=== PATIENT | female | born 1930 | race Caucasian/White ===

== ENCOUNTER 2016-07-12 09:57 | Inpatient (IN) | payer MEDICARE, OTHER ==
--- NOTE | ~2016-07-12 | HP ---
History And Physical [place] [id number] [facility] [place]. [address] NAME: MCKINLEY MEI : 28 STATUS : ADM IN [facility]#: [id number] AGE: 86 ADM/REG DATE : 07/12/16 MR#: [id number] REPORT SERV DATE: 07/12/16 DICTATED BY: KAYLA SHANKAR DATE: 07/12/16 REPORT STATUS : Draft TRANSCRIBED BY: MODKarin DATE: 07/12/16 DATE OF ADMISSION: 07/12/2016 CHIEF COMPLAINT: Status post fall this morning at the [facility], [facility] called for increased weakness. HISTORY OF PRESENT ILLNESS: This is an 86-year-old female patient, who resides at the [facility], which called the ambulance for increased weakness and decreased mentation and failure to thrive. When ambulance arrived at the [facility], her heart rate was noted to be slightly elevated about 160s with atrial fibrillation briefly. When she arrived at the emergency room, her heart rate went down to the 57 in sinus rhythm and sinus bradycardia. While Dr. Acosta, emergency physician, who was talking to the patient, she converted to sinus rhythm without any intervention. She does not have any history of atrial fibrillation or cardiac history. Therefore the Hospitalist Service was called for inpatient care. She is at her baseline at this point with the sitters being around here and a sitter has also confirmed that her mental status is about the same as her normal. She knows where she is. She knows the time and place. She said she normally uses a wheelchair and that she does not need any extra help wheelchair, then she is able to move herself from the wheelchair to the commode without any problem but she thinks she tripped on something this morning when she fell between the chair and wheelchair. She denies any loss of consciousness. Denies any palpitation or dizziness or syncopal episode. According to the information available from the son on the phone to Dr. Acosta, the patient's functional status and memory has been gradually declined in the last year. She is still in assisted living without any dementia unit. She enjoys her day out shopping and eating out from assisted living. She said that she goes away every week in different restaurants and she enjoys very much and also group work with . She has been wheelchair bound for a long time. She has been in assisted living for at least several years. Her medications have not been changed. Denies any shortness of breath or any coughing. No chest pain and denies any constipation. She said it depends on what she eats but normally goes every other day to every day. Denies any burning sensation. Also she denies any self catheterization although the information from the [facility] states she had atonic bladder and a history of UTI. In the emergency room, they checked the urinary retention with a straight cath and then the retention was 600 mL. She does not have any other symptoms and urinalysis on emergency specimen was not showing any evidence of infection. She said that she was taking her antibiotics or medication for the UTI last week. She normally does have some degree about lower extremities edema for years and this seems to History And Physical [address] [address] NAME: MCKINLEY MEI : 28 STATUS : ADM IN [facility]#: [id number] AGE: 86 ADM/REG DATE : 07/12/16 MR#: [id number] REPORT SERV DATE: 07/12/16 DICTATED BY: KAYLA SHANKAR DATE: 07/12/16 REPORT STATUS : Draft TRANSCRIBED BY: ADE DATE: 07/12/16 be may be a little bit worse recently. However she does not have any short of breath nor dyspnea. She is at her baseline mentation and functional status and she is remaining at sinus rhythm at this point. REVIEW OF SYSTEMS: No weight gains and no vision changes or hearing changes. No bleeding. Other systems reviewed in the 14 systems and all negative. PAST MEDICAL HISTORY: 1. Atonic bladder. 2. Frequent UTI. 3. Dementia. 4. Hypertension. 5. GERD. 6. Hypothyroidism. 7. Hyperlipidemia. 8. Ulcerative colitis. 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 10.History of anemia. SOCIAL HISTORY: She is lifelong nonsmoker and she lives in assisted living. She kept saying that her son is an anesthesiologist, Dr. Nilo Mei. ALLERGIES: CODEINE. PAST SURGICAL HISTORY: Cholecystectomy and appendectomy. The patient does have right-sided Port-A-Cath. She does not remember why she had a cath port inserted but she believes that it was done for intake that she needed later use. MEDICATIONS: 1. Artifical eyedrops. 2. Celexa 20 mg once a day. 3. Clonidine 0.1 mg twice a day. 4. Aricept 10 mg at night. 5. Ferrous sulfate 325 mg once at lunch. 6. Glucosamine 1 tablet three times a day. 7. Hydralazine 25 mg twice a day. 8. Levothyroxine 100 mcg once a day. 9. Cozaar 100 mg once a day. 10.Prilosec 20 mg once a day. 11. tablets three times a day as needed. 12.Zocor 20 mg once at bedtime. PHYSICAL EXAMINATION: VITAL SIGNS: Blood pressure 170/46, pulse was 57, temperature was 97.8, respiratory rate was 20, and saturation is 100% on room air. History And Physical [address] [address] NAME: MCKINLEY MEI : 28 STATUS : ADM IN [facility]#: [id number] AGE: 86 ADM/REG DATE : 07/12/16 MR#: [id number] REPORT SERV DATE: 07/12/16 DICTATED BY: KAYLA SHANKAR DATE: 07/12/16 REPORT STATUS : Draft TRANSCRIBED BY: ADE DATE: 07/12/16 GENERAL APPEARANCE: She is alert, awake, not in acute distress. She is oriented x3 at this point. She does have frequent forgetfulness noted. HEENT: Pupils are equal and round and reactive to light. EOMI intact. Conjunctivae not anemic. NECK: There is no jugular venous distention. No nodes palpable. LUNGS: Clear to auscultation bilaterally. Has a normal respiratory effort. CARDIOVASCULAR: I do not hear any murmurs, rubs, or gallops. Has a regular rhythm and rate. ABDOMEN: Bowel sounds present. Soft. No tenderness or rebound tenderness. No organomegaly appreciated. EXTREMITIES: The patient has extensive lower extremity swelling on both lower extremities. The patient's pulse is palpable. LABORATORY DATA: Showed sodium 138, potassium 4.8, BUN 32, and creatinine 1.22. WBC 12, hemoglobin 11.6, hematocrit 34.1, and platelets 149. UA showed wbc 1. BNP was 179.9. STUDIES: 1. Chest x-ray showed some changes of left ventricular enlargement compared via x-rays done in 2013, and chronic change. 2. Electrocardiogram showed sinus bradycardia with a right bundle branch block. ASSESSMENT AND PLAN: 1. Status post fall without significant evidence of syncopal episode. 2. Brief transient atrial fibrillation, now, she is back to sinus bradycardia. 3. Hypertension. 4. Dementia. 5. Both leg edema. 6. CKD suspect did not document on this hospital record. The patient will be hospitalized with continuous cardiac monitoring for rhythm change. We are going to obtain the echocardiogram. We are going to do the supportive care. Because of the bradycardia, we will try to decrease the clonidine and because of the chronic kidney disease, we are going to hold off ARB at this point. We will increase the hydralazine at this point. We are going to add the Norvasc but we will watch out her swelling with the use of Norvasc at this point. Also the patient will be evaluated by physical therapy and discharge plan with the cyanide case hardener in [facility]. EKL/MODL Kayla Shankar M.D. / [id number] History And Physical [address] [address] NAME: MCKINLEY MEI : 28 STATUS : ADM IN [facility]#: [id number] AGE: 86 ADM/REG DATE : 07/12/16 MR#: [id number] REPORT SERV DATE: 07/12/16 DICTATED BY: KAYLA SHANKAR DATE: 07/12/16 REPORT STATUS : Draft TRANSCRIBED BY: MODL DATE: 07/12/16 CC: MD Natanael Tang M.D.
--- NOTE | ~2016-07-12 | DS ---
Discharge Summary [facility] [address] [place]. [address] NAME: MCKINLEY MEI : 28 STATUS : DIS IN PAT#: [id number] AGE: 86 ADM/REG DATE : 07/12/16 MR#: [id number] REPORT SERV DATE: 07/19/16 DICTATED BY: RICKI KHANNA DATE: 07/18/16 REPORT STATUS : Draft TRANSCRIBED BY: MODL DATE: 07/18/16 ADMISSION DATE: 07/12/2016 DISCHARGE DATE: 07/18/2016 DISCHARGE DIAGNOSES: 1. Failure to thrive in adult. 2. Frequent falls. 3. Uncontrolled hypertension. 4. Sinus bradycardia. 5. Senile dementia. 6. Occult blood positive stool with history of gastric antral vascular ectasia. 7. A brief episode of atrial fibrillation with conversion to sinus rhythm. CONSULTANTS: None. PROCEDURES: None. HOSPITAL COURSE: This is an 86-year-old lady who was admitted to the hospital for failure to thrive and frequent falls. For details, please refer to excellent H and P by Dr. Kayla Shankar. In summary, the patient was admitted and was worked up for any potential exacerbating factors such as dehydration or infections. The patient was ruled out of infections and dehydrations. The patient since then have been simply given supportive care. It was noted that the patient will likely benefit from rehab more than anything. During the hospital stay, patient was noted for uncontrolled hypertension despite having been on 5 different antihypertensives. They are all maxed out to include hydrochlorothiazide, Norvasc, losartan, hydralazine. The patient could not tolerate a beta-nat given baseline bradycardia. It was noted that the patient was likely flexing against the blood pressure cough and with manual checks, her blood pressure was better controlled but it is still in the 160s systolic. I had a discussion with the patient's son, Bre Mei, who is our in- house anesthesiologist and he remembered that in the past with aggressive blood pressure management, the patient actually suffered from side effects including hyponatremia and thus it was felt that we did not need to be more aggressive with blood pressure control. The patient will need to be followed closely as an outpatient for monitoring of her blood pressures as well as electrolytes. The patient has a history of GAVE and the patient had multiple episodes of GI bleeds requiring blood transfusions in the past. Per family request, the patient's stool was checked for occult blood which was positive. However, after discussion with Dr. Mei, the patient's son, it was felt that the patient just be better monitored clinically at her age of 86. Along with that, as the patient had a brief episode of atrial fibrillation that spontaneously converted to sinus rhythm with a baseline sinus bradycardia it was felt that the patient probably did not need any anticoagulated therapy. The family has been quite reasonable and focus of her care was to be conservative and focussed more on rehab. The patient is from [facility] but referral was made to [facility]. The patient was accepted to the skilled Discharge [address] [address] NAME: MCKINLEY MEI : 28 STATUS : DIS IN PAT#: [id number] AGE: 86 ADM/REG DATE : 07/12/16 MR#: [id number] REPORT SERV DATE: 07/19/16 DICTATED BY: RICKI KHANNA DATE: 07/18/16 REPORT STATUS : Draft TRANSCRIBED BY: ADE DATE: 07/18/16 nursing and she is now being discharged home with close outpatient followup instructions. DISPOSITION: To [facility]. FOLLOWUP: Please follow up in the next one to two weeks with the PCP. Total of 40 minutes spent in coordinating this patient's discharge today. KAUSHIK/ADE Ricki Khanna MD / [id number] CC: MD Natanael Tang M.D.
[~2016-07-12 09:57] MED LIST: APRES25 PO; ARICEPT10 PO; ARTHRITIS PAIN RELIE PO; AZO STANDARD PO; BL FLAX SEED1000 MG PO; CAT1 PO; CELEXA10 PO; CENTRUM TAB1 TAB PO; COZAAR100 MG PO; GLUCCHONDR PO; IMOD PO; IRON325 MG PO; LEVAQUIN5T PO; MAALOX PO; OS500+D PO; PRILO PO; ROBAFEN DM1 ML PO; SYN1 PO; ZOCOR20 PO
[2016-07-12 10:52] LABS: BASOPHILS 0.2 %; BASOPHILS ABSOLUTE 0.02 10/3/uL (0.0-0.16); EOSINOPHILS 1.1 %; EOSINOPHILS ABSOLUTE 0.13 10/3/uL (0.0-0.53); HEMATOCRIT 34.1 % (36.0-48.0); HEMOGLOBIN 11.6 g/dL (12.0-16.0); IMMATURE GRANULOCYTES 0.3 %; IMMATURE GRANULOCYTES ABSOLUTE 0.03 10/3/uL (0.0-0.11); LYMPHOCYTES 6.3 %; LYMPHOCYTES ABSOLUTE 0.75 10/3/uL (0.67-4.30); MEAN CORPUSCULAR HEMOGLOB 28.9 pg (26.0-34.0); MEAN CORPUSCULAR VOLUME 84.8 fL (80-100); MEAN PLATELET VOLUME 9.2 fL (9.2-13.0); MONOCYTES 6.5 %; MONOCYTES ABSOLUTE 0.78 10/3/uL (0.21-1.20); NEUTROPHILS 85.6 %; NEUTROPHILS ABSOLUTE 10.29 10/3/uL (2.02-8.40); RBC DISTRIBUTION WIDTH 14.8 % (12.0-16.0); RED CELL COUNT 4.02 10/6/uL (4.0-5.6)
[2016-07-12 10:53] LABS: ER CBC TAT 0 Hrs 07 Mins; MANUAL DIFF NO %; PLATELET COUNT 149 10/3/uL (150-400)
[2016-07-12 11:01] LABS: INTERNATIONAL NORMAL RATI 1.1 UNITS (-); PARTIAL THROMBO TIME 31.6 SEC (22.5-37.2); PROTIME (NOT ORD) 14.2 SEC (12.0-14.5)
[2016-07-12 11:05] LABS: ASCORBIC ACID (UR NOT ORDER) NEG (NEG); BILIRUBIN, URINE NEGATIVE (NEG); ER URINALYSIS TAT 0 Hrs 11 Mins; KETONE, URINE NEGATIVE (NEG); LEUKOCYTE ESTERASE(NOT OR NEG (NEG); NITRITE (URINE) NEG (NEG); WBC (NOT ORDERED) (RFLEX) 1 (0-5)
[2016-07-12 11:08] LABS: ALBUMIN 3.4 G/DL (3.5-5.0); ALKALINE PHOSPHATASE 86 U/L (45-117); CALCIUM, SERUM 8.8 MG/DL (8.5-10.4); CHLORIDE, SERUM 107 MMOL/L (96-112); CREATININE 1.22 MG/DL (0.55-1.02); GFR AFRICAN AMERICAN 46 ML/MIN (>=60); GFR NON AFRICAN AMERICAN 40 ML/MIN (>=60); GLUCOSE, SERUM 109 MG/DL (60-99); SGPT(ALT) 18 U/L (5-65); SODIUM, SERUM 138 MMOL/L (135-148); TOTAL PROTEIN 7.7 G/DL (6.0-8.5); TROPONIN I <0.02 NG/ML (<0.05)
[2016-07-12 11:09] LABS: A/G RATIO 0.8 (0.7-1.9); BUN (BLOOD UREA NITROGEN) 32 MG/DL (6-23); CO2 (CARBON DIOXIDE) 20 MMOL/L (24-34); GLOBULIN 4.3 G/DL (2.5-4.1); POTASSIUM, SERUM 4.8 MMOL/L (3.5-5.3); SGOT(AST) 37 U/L (5-40)
[2016-07-12] MEDS ORDERED: ARICEPT10 PO (12:54)
[2016-07-12] MEDS ORDERED: CAT1 PO (12:54)
[2016-07-12] MEDS ORDERED: CELEXA20 PO (12:54)
[2016-07-12] MEDS ORDERED: FERROUS SULF325 M1 PO (12:55)
[2016-07-12] MEDS ORDERED: LEVOTHYROXIN100 MCG PO (12:55)
[2016-07-12] MEDS ORDERED: COZAAR100 MG PO (12:55)
[2016-07-12] MEDS ORDERED: GLUCCHONDR PO (12:55)
[2016-07-12] MEDS ORDERED: APRES25 PO (12:55)
[2016-07-12] MEDS ORDERED: ZOCOR20 PO (12:56)
[2016-07-12] MEDS ORDERED: PRILO PO (12:56)
[2016-07-12] MEDS ORDERED: REFRESH OPH (12:56)
[2016-07-12] MEDS ORDERED: ZEASORB AF 2% TOP (12:57)
[2016-07-12] MEDS ORDERED: AZO-STANDARD95 MG PO (12:57)
[2016-07-12] MEDS ORDERED: SYSTANE ULTR OPH (12:57)
[2016-07-13 06:22] LABS: BASOPHILS 0.1 %; BASOPHILS ABSOLUTE 0.01 10/3/uL (0.0-0.16); EOSINOPHILS 1.2 %; EOSINOPHILS ABSOLUTE 0.12 10/3/uL (0.0-0.53); HEMOGLOBIN 10.1 g/dL (12.0-16.0); IMMATURE GRANULOCYTES 0.2 %; IMMATURE GRANULOCYTES ABSOLUTE 0.02 10/3/uL (0.0-0.11); LYMPHOCYTES 6.3 %; LYMPHOCYTES ABSOLUTE 0.61 10/3/uL (0.67-4.30); MEAN CORPUS HGB CONC 35.1 g/dL (32.0-36.0); MEAN CORPUSCULAR HEMOGLOB 28.9 pg (26.0-34.0); MEAN CORPUSCULAR VOLUME 82.3 fL (80-100); MEAN PLATELET VOLUME 9.3 fL (9.2-13.0); MONOCYTES 7.9 %; MONOCYTES ABSOLUTE 0.76 10/3/uL (0.21-1.20); NEUTROPHILS 84.3 %; NEUTROPHILS ABSOLUTE 8.15 10/3/uL (2.02-8.40); PLATELET COUNT 115 10/3/uL (150-400); RBC DISTRIBUTION WIDTH 14.9 % (12.0-16.0); WHITE BLOOD CELLS 9.7 10/3/uL (4.5-10.5)
[2016-07-13 06:28] LABS: HEMATOCRIT 28.8 % (36.0-48.0); MANUAL DIFF NO %
[2016-07-13 06:32] LABS: CHLORIDE, SERUM 108 MMOL/L (96-112); CO2 (CARBON DIOXIDE) 22 MMOL/L (24-34); CREATININE 0.99 MG/DL (0.55-1.02); GFR AFRICAN AMERICAN 59 ML/MIN (>=60); GFR NON AFRICAN AMERICAN 51 ML/MIN (>=60); GLUCOSE, SERUM 109 MG/DL (60-99); SGOT(AST) 28 U/L (5-40); SGPT(ALT) 14 U/L (5-65); SODIUM, SERUM 139 MMOL/L (135-148); TOTAL BILIRUBIN 0.9 MG/DL (0-1.2)
[2016-07-13 06:33] LABS: A/G RATIO 0.8 (0.7-1.9); ALBUMIN 2.6 G/DL (3.5-5.0); ALKALINE PHOSPHATASE 69 U/L (45-117); BUN (BLOOD UREA NITROGEN) 25 MG/DL (6-23); GLOBULIN 3.4 G/DL (2.5-4.1); POTASSIUM, SERUM 3.6 MMOL/L (3.5-5.3)
[2016-07-14 04:49] LABS: BASOPHILS 0.3 %; BASOPHILS ABSOLUTE 0.02 10/3/uL (0.0-0.16); EOSINOPHILS 2.2 %; EOSINOPHILS ABSOLUTE 0.17 10/3/uL (0.0-0.53); HEMATOCRIT 27.8 % (36.0-48.0); HEMOGLOBIN 9.6 g/dL (12.0-16.0); IMMATURE GRANULOCYTES 0.1 %; IMMATURE GRANULOCYTES ABSOLUTE 0.01 10/3/uL (0.0-0.11); LYMPHOCYTES ABSOLUTE 0.92 10/3/uL (0.67-4.30); MANUAL DIFF NO %; MEAN CORPUS HGB CONC 34.5 g/dL (32.0-36.0); MEAN CORPUSCULAR HEMOGLOB 29.3 pg (26.0-34.0); MEAN CORPUSCULAR VOLUME 84.8 fL (80-100); MEAN PLATELET VOLUME 9.1 fL (9.2-13.0); MONOCYTES 8.2 %; MONOCYTES ABSOLUTE 0.63 10/3/uL (0.21-1.20); NEUTROPHILS 77.2 %; NEUTROPHILS ABSOLUTE 5.94 10/3/uL (2.02-8.40); PLATELET COUNT 118 10/3/uL (150-400); RED CELL COUNT 3.28 10/6/uL (4.0-5.6); WHITE BLOOD CELLS 7.7 10/3/uL (4.5-10.5)
[2016-07-14 05:17] LABS: BUN (BLOOD UREA NITROGEN) 22 MG/DL (6-23); CALCIUM, SERUM 8.5 MG/DL (8.5-10.4); CHLORIDE, SERUM 109 MMOL/L (96-112); CO2 (CARBON DIOXIDE) 21 MMOL/L (24-34); CREATININE 1.08 MG/DL (0.55-1.02); GFR AFRICAN AMERICAN 53 ML/MIN (>=60); GFR NON AFRICAN AMERICAN 46 ML/MIN (>=60); GLUCOSE, SERUM 110 MG/DL (60-99); POTASSIUM, SERUM 4.1 MMOL/L (3.5-5.3); SODIUM, SERUM 141 MMOL/L (135-148)
[2016-07-15 05:38] LABS: BASOPHILS 0.1 %; BASOPHILS ABSOLUTE 0.01 10/3/uL (0.0-0.16); EOSINOPHILS 0.1 %; EOSINOPHILS ABSOLUTE 0.01 10/3/uL (0.0-0.53); HEMATOCRIT 29.3 % (36.0-48.0); HEMOGLOBIN 9.8 g/dL (12.0-16.0); IMMATURE GRANULOCYTES 0.1 %; IMMATURE GRANULOCYTES ABSOLUTE 0.01 10/3/uL (0.0-0.11); LYMPHOCYTES ABSOLUTE 0.59 10/3/uL (0.67-4.30); MEAN CORPUS HGB CONC 33.4 g/dL (32.0-36.0); MEAN CORPUSCULAR HEMOGLOB 28.2 pg (26.0-34.0); MEAN CORPUSCULAR VOLUME 84.2 fL (80-100); MEAN PLATELET VOLUME 9.1 fL (9.2-13.0); MONOCYTES 5.2 %; MONOCYTES ABSOLUTE 0.51 10/3/uL (0.21-1.20); NEUTROPHILS 88.5 %; NEUTROPHILS ABSOLUTE 8.76 10/3/uL (2.02-8.40); PLATELET COUNT 114 10/3/uL (150-400); RBC DISTRIBUTION WIDTH 14.5 % (12.0-16.0); RED CELL COUNT 3.48 10/6/uL (4.0-5.6); WHITE BLOOD CELLS 9.9 10/3/uL (4.5-10.5)
[2016-07-15 05:40] LABS: MANUAL DIFF NO %
[2016-07-15 05:56] LABS: BUN (BLOOD UREA NITROGEN) 22 MG/DL (6-23); CALCIUM, SERUM 8.4 MG/DL (8.5-10.4); CHLORIDE, SERUM 106 MMOL/L (96-112); CO2 (CARBON DIOXIDE) 22 MMOL/L (24-34); CREATININE 1.13 MG/DL (0.55-1.02); GFR AFRICAN AMERICAN 51 ML/MIN (>=60); GFR NON AFRICAN AMERICAN 44 ML/MIN (>=60); GLUCOSE, SERUM 128 MG/DL (60-99); POTASSIUM, SERUM 3.7 MMOL/L (3.5-5.3); SODIUM, SERUM 137 MMOL/L (135-148)
[2016-07-15 06:41] LABS: PREALBUMIN 11.3 MG/DL (17.0-43.0)
[2016-07-16 05:03] LABS: BASOPHILS 0 %; EOSINOPHILS 0 %; HEMATOCRIT 27.9 % (36.0-48.0); HEMOGLOBIN 9.5 g/dL (12.0-16.0); IMMATURE GRANULOCYTES 0.3 %; IMMATURE GRANULOCYTES ABSOLUTE 0.03 10/3/uL (0.0-0.11); LYMPHOCYTES 4.7 %; LYMPHOCYTES ABSOLUTE 0.54 10/3/uL (0.67-4.30); MEAN CORPUS HGB CONC 34.1 g/dL (32.0-36.0); MEAN CORPUSCULAR HEMOGLOB 28.6 pg (26.0-34.0); MEAN PLATELET VOLUME 9.3 fL (9.2-13.0); MONOCYTES 4.5 %; MONOCYTES ABSOLUTE 0.52 10/3/uL (0.21-1.20); NEUTROPHILS 90.5 %; NEUTROPHILS ABSOLUTE 10.45 10/3/uL (2.02-8.40); PLATELET COUNT 115 10/3/uL (150-400); RBC DISTRIBUTION WIDTH 14.5 % (12.0-16.0); RED CELL COUNT 3.32 10/6/uL (4.0-5.6); WHITE BLOOD CELLS 11.5 10/3/uL (4.5-10.5)
[2016-07-16 05:09] LABS: MANUAL DIFF NO %
[2016-07-16 05:16] LABS: BUN (BLOOD UREA NITROGEN) 22 MG/DL (6-23); CALCIUM, SERUM 8.3 MG/DL (8.5-10.4); CHLORIDE, SERUM 105 MMOL/L (96-112); CO2 (CARBON DIOXIDE) 22 MMOL/L (24-34); CREATININE 1.19 MG/DL (0.55-1.02); GFR AFRICAN AMERICAN 48 ML/MIN (>=60); GFR NON AFRICAN AMERICAN 41 ML/MIN (>=60); POTASSIUM, SERUM 4.1 MMOL/L (3.5-5.3); SODIUM, SERUM 137 MMOL/L (135-148)
[2016-07-16 05:19] LABS: GLUCOSE, SERUM 189 MG/DL (60-99)
[2016-07-18 04:59] LABS: BASOPHILS 0.2 %; BASOPHILS ABSOLUTE 0.02 10/3/uL (0.0-0.16); EOSINOPHILS 2.4 %; EOSINOPHILS ABSOLUTE 0.22 10/3/uL (0.0-0.53); HEMATOCRIT 29.8 % (36.0-48.0); HEMOGLOBIN 10.1 g/dL (12.0-16.0); IMMATURE GRANULOCYTES 0.3 %; IMMATURE GRANULOCYTES ABSOLUTE 0.03 10/3/uL (0.0-0.11); LYMPHOCYTES 8.6 %; LYMPHOCYTES ABSOLUTE 0.78 10/3/uL (0.67-4.30); MEAN CORPUS HGB CONC 33.9 g/dL (32.0-36.0); MEAN CORPUSCULAR HEMOGLOB 28.7 pg (26.0-34.0); MEAN CORPUSCULAR VOLUME 84.7 fL (80-100); MEAN PLATELET VOLUME 9.2 fL (9.2-13.0); MONOCYTES 9.6 %; MONOCYTES ABSOLUTE 0.87 10/3/uL (0.21-1.20); NEUTROPHILS 78.9 %; NEUTROPHILS ABSOLUTE 7.13 10/3/uL (2.02-8.40); PLATELET COUNT 132 10/3/uL (150-400); RBC DISTRIBUTION WIDTH 14.9 % (12.0-16.0); RED CELL COUNT 3.52 10/6/uL (4.0-5.6); WHITE BLOOD CELLS 9.1 10/3/uL (4.5-10.5)
[2016-07-18 05:00] LABS: MANUAL DIFF NO %
[2016-07-18 05:14] LABS: BUN (BLOOD UREA NITROGEN) 20 MG/DL (6-23); CALCIUM, SERUM 8.1 MG/DL (8.5-10.4); CHLORIDE, SERUM 106 MMOL/L (96-112); CO2 (CARBON DIOXIDE) 24 MMOL/L (24-34); CREATININE 1.15 MG/DL (0.55-1.02); GFR AFRICAN AMERICAN 50 ML/MIN (>=60); GFR NON AFRICAN AMERICAN 43 ML/MIN (>=60); GLUCOSE, SERUM 98 MG/DL (60-99); POTASSIUM, SERUM 3.9 MMOL/L (3.5-5.3); SODIUM, SERUM 140 MMOL/L (135-148)
== END 2016-07-18 14:40 | DRG 309 ==
LOC: ER 09:57 → 6NO 15:27
PROVIDERS: Emergency Medicine; Internal Medicine
DX: I48.91 Unspecified atrial fibrillation (principal); N17.9 Acute kidney failure, unspecified; K51.90 Ulcerative colitis, unspecified, without complications; F03.90 Unspecified dementia, unspecified severity, without behavioral disturbance, psychotic disturbance, mood disturbance, and anxiety; N31.2 Flaccid neuropathic bladder, not elsewhere classified; R00.1 Bradycardia, unspecified; I10 Essential (primary) hypertension; N18.9 Chronic kidney disease, unspecified; W19.XXXA Unspecified fall, initial encounter; R19.5 Other fecal abnormalities; K31.819 Angiodysplasia of stomach and duodenum without bleeding; R26.9 Unspecified abnormalities of gait and mobility; Z99.3 Dependence on wheelchair; Z87.440 Personal history of urinary (tract) infections; Z90.49 Acquired absence of other specified parts of digestive tract
CPT/HCPCS: 70450; 71010; 73110-RT; 73130-RT; 73502-RT; 80048; 80053; 81001; 82272; 83735; 83880; 84134; 84443; 84484; 85025; 85610; 85730; 93005; 93306; 97162-GP; 97530-GP; 99285; A9270-GY; G8978-CL-GP; G8979-CL-GP; G8980-CL-GP; J0360